=== PATIENT | female | born 1955 | race African-American/Black ===

== ENCOUNTER 2018-02-19 09:02 | Emergency (ER) | payer OTHER ==
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
== END 2018-02-19 10:39 | disposition home or self-care (01) ==
LOC: ER 09:02
DX: S76.011A Strain of muscle, fascia and tendon of right hip, initial encounter (principal); S13.4XXA Sprain of ligaments of cervical spine, initial encounter; V49.40XA Driver injured in collision with unspecified motor vehicles in traffic accident, initial encounter; I10 Essential (primary) hypertension; E11.9 Type 2 diabetes mellitus without complications; E07.9 Disorder of thyroid, unspecified
CPT/HCPCS: 70450; 72125; 99284

== ENCOUNTER 2018-09-10 11:06 | Observation (INO) | payer OTHER ==
[2018-09-10] MEDS ORDERED: ONDANSETRON 4 MG/2 ML VIAL IV PRN (11:30)
[2018-09-10] MEDS ORDERED: GLUCAGON 1 MG/VIAL IM PRN (11:31)
[2018-09-10] MEDS ORDERED: D50W 25 GM/50 ML SYRINGE IV PRN (11:31)
[2018-09-10 11:50] VITALS: BMI 36.9
[2018-09-10 12:11] LABS: Absolute Lymphocytes (CBC) 2.3 K/uL (0.7-4.9); Absolute Monocytes 0.4 K/uL (0.1-1.3); Absolute Neutrophil 3.8 K/uL (1.8-8.0); Basophils % 1.3 % (0-1.3); Eosinophils % 0.6 % (0-4.4); Hematocrit 38.6 % (36.0-45.0); Lymphocytes % 35.2 % (15.3-44.8); MPV 10.2 fL (7.6-11.3); Monocytes % 5.9 % (3.3-12.3); RBC Red Blood Cell Count 4.23 M/uL (3.86-4.86)
[2018-09-10 12:23] LABS: Potassium 3.8 mmol/L (3.5-5.1)
[2018-09-10 12:47] LABS: Urine Appearance CLEAR; Urine Bilirubin NEGATIVE (NEG); Urine Blood NEGATIVE (NEG); Urine Color YELLOW; Urine Glucose 3+ (NEG); Urine Protein NEGATIVE (NEG); Urine Specific Gravity 1.025 (1.005-1.030); Urine Urobilinogen 0.2 mg/dL (0.2-1.0)
[2018-09-10 12:51] LABS: Urine Microscopic Reflex ORDER UMIC
[2018-09-10 12:55] LABS: Urine Bacteria >50 /HPF (<20); Urine Culture Reflex Order NOT NEEDED; Urine RBC <5 /HPF (NONE SEEN)
[2018-09-10] MEDS: INSULIN -REGULAR HUMAN 50 UNIT/0.5 ML ML SQ SCH ×3 (12:57→20:43)
[2018-09-10] MEDS: NA CHLORIDE 0.9% 1,000 ML IV SCH ×2 (12:57→22:41)
--- NOTE | 2018-09-10 14:29 | RAD REPORT ---
EXAM DESCRIPTION: US - Renal Ultrasound-Complete - 09/10/2018 2:23 pm CLINICAL HISTORY: renal insuff Flank pain COMPARISON: ABDOMINAL EXAM COMPLETE dated 07/20/2013 FINDINGS: Both kidneys are normal in size, shape and echotexture. The right kidney measures 10.7 x 5.2 x 4.3 cm. No hydronephrosis, focal mass or perinephric fluid. The left kidney measures 10.9 x 5.6 x 4.8 cm. No hydronephrosis, focal mass or perinephric fluid. The urinary bladder is incompletely distended without gross abnormality seen. IMPRESSION: Unremarkable renal sonogram.
[2018-09-10] MEDS: ATORVASTATIN 20 MG TAB PO SCH (20:40)
--- NOTE | 2018-09-11 01:54 | PN ---
Date of Progress Note: 09/10/2018 Subjective: The patient states she feels much better tonight. She has responded quite well to IV tr eatment and following of her sugar, if this continues at this rate, she maybe will be to be discharge d in the a.m. HR/MODL Voice ID: [id number] Report ID: [id number]
--- NOTE | 2018-09-11 02:30 | HP ---
Date of Admission: 09/10/2018 Entrance Complaint: General malaise, difficulty controlling her sugar. History Of Present Illness: The patient presented to the office with an approximately 2-week history of progressive general malaise associated with blood sugar readings over 400 and stated that she fel t the same way she did a couple of years earlier when her kidney function was impaired. She was dehy drated. Blood sugars were high. After hydration and sliding scale of her insulin, she has done quit e well for 2 years, somewhat puzzling as to the onset at approximately the same time of the year. Ho nasver, the patient did say she may have waited a little long in trying to control it by coming to see the doctor as her symptoms were progressive, although she felt that she could control it, but nicolasa berg not. She was thus seen in the office; at which time, she was obviously dehydrated, unable to con trol her sugars, and was therefore admitted for more intensive care. Past History: As above. The patient has been a diabetic for a number of years now, has been under r elatively good control except for those 2 episodes and actually in between times, her blood work has been good and her A1c has been very acceptable and her creatinine has been down to normal. Social History: Nonsmoker, nondrinker. Family History: Noncontributory. Physical Examination: General: The patient is a rather puny-appearing, middle-aged female with stable vital signs. Head and Neck: Normocephalic. Pupils equal and reactive to light and accommodation. Fundi negative. Trachea midline. Thyroid not palpable. ENT: Negative. Chest: Clear to P and A. Cardiovascular: PMI, midclavicular line. Heart: Sounds normal. Peripheral pulses are present and equal bilaterally. Abdomen: No organomegaly. Bowel sounds present. Extremities: Marked dehydration. Good tone and movement bilaterally. Reflexes are physiologic. Rectal: Deferred. Pelvic: Deferred. Impression: Hyperglycemia, insulin-dependent diabetic, and dehydration, moderate. Plan: The patient will be admitted, placed on IV fluids. Increase her insulin dose and use sliding scale as well. HR/MODL Voice ID: [id number]
[2018-09-11 04:20] LABS: Absolute Lymphocytes (CBC) 4.3 K/uL (0.7-4.9); Absolute Monocytes 0.6 K/uL (0.1-1.3); Absolute Neutrophil 3.4 K/uL (1.8-8.0); Basophils % 0.7 % (0-1.3); Eosinophils % 1.5 % (0-4.4); Hematocrit 34.3 % (36.0-45.0); Lymphocytes % 50.8 % (15.3-44.8); MPV 9.9 fL (7.6-11.3); Monocytes % 6.9 % (3.3-12.3); RBC Red Blood Cell Count 3.77 M/uL (3.86-4.86)
[2018-09-11 04:41] LABS: Potassium 3.5 mmol/L (3.5-5.1)
[2018-09-11] MEDS: LEVOTHYROXINE SOD 0.075 MG TAB PO SCH (05:33)
[2018-09-11] MEDS: NA CHLORIDE 0.9% 1,000 ML IV SCH ×2 (08:20→18:23)
[2018-09-11] MEDS: INSULIN -REGULAR HUMAN 50 UNIT/0.5 ML ML SQ SCH ×4 (08:21→20:42)
[2018-09-11] MEDS: AMLODIPINE 10 MG TAB PO SCH (08:22)
[2018-09-11] MEDS ORDERED: INSULIN GLARGINE 100 UNITS/ML SQ SCH (09:00)
--- NOTE | 2018-09-11 10:34 | EKG ---
Test Date: 2018-09-10 Test Time: 12:23:36 Plant Engineering Manager: STEPHANIA MEASUREMENT RESULTS: Intervals: Rate: 64 UT: 146 QRSD: 78 QT: 404 QTc: 416 [place]: P: 56 UT: 146 QRS: 29 T: 30 INTERPRETIVE STATEMENTS: Normal sinus rhythm Cannot rule out Anterior infarct, age undetermined Abnormal ECG Compared to ECG 11/14/1997 18:43:00 Sinus tachycardia no longer present Myocardial infarct finding still present Electronically Signed On 09-10-18 17:48:25 CDT by Kb Julio
[2018-09-11] MEDS ORDERED: INSULIN GLARGINE 100 UNITS/ML SQ ONE (17:00)
--- NOTE | 2018-09-11 18:09 | P.PN ---
Subjective Date of Service: 09/11/18 Chief Complaint: Hyperglycemia Subjective: Tolerating diet, Improving Patient seen and examined at bedside. at bedside. Chart reviewed and case discussed with nursing staff. Clinically patient states that she is doing a lot better. Blood sugars continue to be elevated overnight. Denies cp, sob, nausea/vomiting, headache, vision changes or complaints. Review of Systems 10-point ROS is otherwise unremarkable Physical Examination - Vital Signs Temperature: 97.7 F Blood Pressure: 130/66 Pulse: 65 Respirations: 18 Pulse Ox (%): 96 - Physical Exam General: Alert, In no apparent distress, Oriented x3 HEENT: Atraumatic, PERRLA, EOMI Neck: Supple, JVD not distended Respiratory: Clear to auscultation bilaterally, Normal air movement Cardiovascular: Regular rate/rhythm, Normal S1 S2 Gastrointestinal: Normal bowel sounds, No tenderness Musculoskeletal: No tenderness Integumentary: No rashes Neurological: Normal speech, Normal tone, Normal affect Lymphatics: No axilla or inguinal lymphadenopathy - Studies Laboratory Data (last 24 hrs) 09/11/18 03:39: Sodium 142, Potassium 3.5, BUN 23 H, Creatinine 0.97, Glucose 129 H 09/11/18 03:39: WBC 8.5 D, Hgb 11.6 L, Hct 34.3 L, Plt Count 264 Assessment And Plan - Plan This is a 63 yr old female with: 1) DM2, Non insulin dependent: Increase Lantus to 35 units daily. Continue with glucometer checks ACHS and sliding scale insulin. We will continue to monitor and adjust as needed. Labs in the am.
[2018-09-11] MEDS: ATORVASTATIN 20 MG TAB PO SCH (20:43)
[2018-09-11 23:33] VITALS: O2SAT 98
[2018-09-12] MEDS: NA CHLORIDE 0.9% 1,000 ML IV SCH (04:04)
[2018-09-12] MEDS: LEVOTHYROXINE SOD 0.075 MG TAB PO SCH (05:27)
[2018-09-12 06:11] LABS: Potassium 3.2 mmol/L (3.5-5.1)
[2018-09-12] MEDS: INSULIN -REGULAR HUMAN 50 UNIT/0.5 ML ML SQ SCH ×3 (07:30→16:30)
[2018-09-12] MEDS ORDERED: INSULIN GLARGINE 100 UNITS/ML SQ SCH (09:00)
[2018-09-12] MEDS: AMLODIPINE 10 MG TAB PO SCH (09:08)
[2018-09-12] MEDS ORDERED: POTASSIUM 25 MEQ EFFERV TAB PO ONE (14:00)
[2018-09-12 16:37] VITALS: BP 148/76; TEMP 97.9
--- NOTE | 2018-09-12 17:24 | P.SSS ---
Patient History Date of Service: 09/12/18 Reason for admission: Hyperglycemia History of Present Illness: The patient presented to the office with an approximately 2-week history of progressive general malaise associated with blood sugar readings over 400 and stated that she felt the same way she did a couple of years earlier when her kidney function was impaired. She was dehydrated. Blood sugars were high. After hydration and sliding scale of her insulin, she has done quite well for 2 years, somewhat puzzling as to the onset at approximately the same time of the year. However, the patient did say she may have waited a little long in trying to control it by coming to see the doctor as her symptoms were progressive, although she felt that she could control it, but obviously not. She was thus seen in the office; at which time, she was obviously dehydrated, unable to control her sugars, and was therefore admitted for more intensive care. Allergies No Known Allergies Allergy (Verified 11/16/16 22:14) Home Medications: Levothyroxine [Synthroid*] 0.125 mg PO DAILY 11/16/16 Losartan/Hydrochlorothiazide [Hyzaar 100-25 Tablet] 1 tab PO DAILY 11/16/16 Atorvastatin Calcium [Lipitor*] 20 mg PO BEDTIME #30 tab 09/12/18 Insulin Glargine,Hum.rec.anlog [Basaglar Kwikpen U-100] 40 units SQ [id number] #1 insuln.pen 09/12/18 - Past Medical/Surgical History Has patient received pneumonia vaccine in the past: No Diabetic: Yes -: diabetes -: thyroid disease -: hypertension -: cholecystectomy -: tubal ligation - Family History Mother -: Hypertension Father -: Hypertension - Social History Smoking Status: Never smoker Alcohol use: No CD- Drugs: No Caffeine use: No Place of Residence: Home Review of Systems 10-point ROS is otherwise unremarkable Physical Examination - Vital Signs Temperature: 97.9 F Blood Pressure: 148/76 Pulse: 76 Respirations: 18 Pulse Ox (%): 98 - Physical Exam General: Alert, In no apparent distress, Oriented x3 HEENT: Atraumatic, PERRLA, Mucous membr. moist/pink, EOMI, Sclerae nonicteric Neck: Supple, 2+ carotid pulse no bruit, No LAD, Without JVD or thyroid abnormality Respiratory: Clear to auscultation bilaterally, Normal air movement Cardiovascular: Regular rate/rhythm, Normal S1 S2 Gastrointestinal: Normal bowel sounds, No tenderness Musculoskeletal: No tenderness Integumentary: No rashes Neurological: Normal gait, Normal speech, Normal strength at 5/5 x4 extr, Normal tone, Normal affect Lymphatics: No axilla or inguinal lymphadenopathy - Studies Laboratory Data (last 24 hrs) 09/12/18 04:10: Sodium 142, Potassium 3.2 L, BUN 15, Creatinine 0.84, Glucose 114 H Microbiology Data (last 24 hrs): 09/10/18 12:33 Clean Catch Urine [place] Count - Final >100,000 CFU/ML. 09/10/18 12:33 Clean Catch Urine - Final MIXED SUSANNAH. Treatment Summary: Patient was admitted for diabetes mellitus type 2, with hyperglycemia. A1c was found to be 14.8. Her home insulin was restarted with Lantus 30 units, she was started on IV fluids. Clinically, patient's symptoms improved and stated she felt much better. Her blood sugars also improved the were still elevated. Her Lantus was increased to 35 units daily. She still required 8 units of sliding scale insulin and therefore her Lantus was increased to 40 units at discharge. She was instructed on how to check her blood sugars at home, signs of hypoglycemia. She was also educated on diet and lifestyle modifications. Patient verbalized understanding. All questions were answered. She was discharged home in a safe manner. She will follow up with her primary care physician next week for further management. She remained hemodynamically stable throughout the stay. At the time of discharge, she was alert oriented x3, in no acute distress. She is tolerating a diet, asymptomatic and was ambulating without any concerns. - Disposition Discharge Date: 09/12/18 Disposition: ROUTINE DISCHARGE Condition: GOOD Patient Discharge Instructions: Please follow up with the primary care physician in 1 week. Please increase your Basaglar to 40 units every morning. Keep a log of the blood sugars. I would recommend checking blood sugars fasting every morning along with 2 hr after a meal. Please take this long 2 primary care physician visit in order to make adjustments to your insulin dosage. Please return to the emergency room for worsening symptoms Diet: ADA Activity: Ad arsenio Time Spent Managing Pts Care (In Minutes): 55
== END 2018-09-12 18:00 | disposition home or self-care (01) ==
LOC: 4TH 11:12
PROVIDERS: ADMIT Family Medicine; ATTEND Family Medicine
DX: E11.65 Type 2 diabetes mellitus with hyperglycemia (principal); E86.0 Dehydration; I10 Essential (primary) hypertension
CPT/HCPCS: 36415; 76770; 80048; 81003; 81015; 82962; 83525; 85025; 87086; 87088; 93005; G0378; J7030